=== PATIENT | female | born 1945 | race Two or more races ===

== ENCOUNTER 2018-10-12 02:54 | Emergency (ER) | payer MEDICARE, OTHER ==
[~2018-10-12] VITALS: Ht 149.9 cm; Wt 64.2 kg
--- NOTE | 2018-10-12 03:08 | NUR ---
PT PRESENTED TO THE ER WITH A C/O N/V X 2 HRS [employer]. PT VOMITTED X1 DURING TRIAGE. PT AMBULATED TO ER #7 WITH A STEADY GAIT. PT APPEARED UPSET AND C/O NOT FEELING WELL. PT WAS CONNECTED TO THE MONITOR AND CONTINUOUS PULSE OX. VSS.
--- NOTE | 2018-10-12 03:08 | NUR ---
IV STARTED IN LAC. BLOOD WAS DRAWN AND SENT TO LAB.
[2018-10-12] MEDS ORDERED: ONDANSETRON HCL/PF 4 MG/2 ML VIAL ONE ×2 (03:11→06:52)
[2018-10-12 03:26] LABS: BASOPHILS # (AUTO) 0.1 /CMM (0.0-0.2); BASOPHILS % (AUTO) 0.5 % (0.0-2.0); EOSINOPHILS % (AUTO) 0.3 % (0.0-6.0); HEMATOCRIT 36 % (33-45); HEMOGLOBIN 12.3 g/dL (11.5-14.8); LYMPHOCYTES # (AUTO) 1.7 /CMM (0.8-4.8); LYMPHOCYTES % (AUTO) 8.5 % (20.0-44.0); MEAN CORPUSCULAR HGB CONC 34 g/dl (31.0-36.0); MEAN CORPUSCULAR VOLUME 86 fL (82-100); MONOCYTES % (AUTO) 4.9 % (2.0-12.0); NEUTROPHILS # (AUTO) 16.8 /CMM (1.8-8.9); NEUTROPHILS % (AUTO) 85.8 % (43.0-81.0); PLATELET COUNT (AUTO) 500 /CMM (150-450); RED BLOOD CELL COUNT(AUTO) 4.19 MIL/uL (4.0-5.2); WHITE BLOOD COUNT (AUTO) 19.6 K/uL (4.3-11.0)
[2018-10-12] MEDS ORDERED: ONDANSETRON HCL/PF 4 MG/2 ML VIAL IVP ONE (03:30)
[2018-10-12] MEDS ORDERED: IV NS 0.9% 1,000 ML BAG IV ONE (03:30)
[2018-10-12 03:39] LABS: CALCIUM, SERUM 9.7 mg/dL (8.5-10.1); CARBON DIOXIDE 24 mmol/L (21-32); CHLORIDE 100 mmol/L (98-107); CREATININE 0.9 mg/dL (0.6-1.3); GLUCOSE 190 mg/dL (74-106); POTASSIUM 4.1 mmol/L (3.5-5.1); SODIUM SERUM 137 mmol/L (136-145); UREA NITROGEN, BLOOD 24 mg/dL (7-18)
[2018-10-12 03:43] LABS: ALANINE AMINOTRANSFERASE 28 U/L (12-78); ALBUMIN 4.3 g/dL (3.4-5.0); ALKALINE PHOSPHATASE 93 U/L (46-116); ASPARTATE AMINOTRANSFERASE 29 U/L (15-37); BILIRUBIN,DIRECT 0.1 mg/dL (0.0-0.2); BILIRUBIN,TOTAL 0.4 mg/dL (0.2-1.0); LIPASE 565 U/L (73-393)
--- NOTE | 2018-10-12 03:54 | NUR ---
PT FELT COLD AND REC'D ANOTHER WARM BLANKET.
[2018-10-12] MEDS ORDERED: MAG HYDROX/AL HYDROX/SIMETH 30 ML UDC ONE (04:54)
[2018-10-12] MEDS ORDERED: FAMOTIDINE/PF INJ 20 MG/2 ML VIAL IV ONE (04:56)
[2018-10-12] MEDS: FAMOTIDINE/PF INJ 20 MG/2 ML VIAL IV ONE ×2 (04:56→05:22)
[2018-10-12] MEDS ORDERED: MAG HYDROX/AL HYDROX/SIMETH 30 ML UDC PO ONE (05:00)
--- NOTE | 2018-10-12 06:53 | NUR ---
VERBAL ORDER FROM DR. NICHOLSON FOR ZOFRAN 4MG IVP.
--- NOTE | 2018-10-12 06:53 | NUR ---
PT CALLED AND C/O FEELING NAUSEATED. PT REC'D AN EMESIS BAG AND BEGAN TO VOMIT. NOTIFIED.
[2018-10-12] MEDS ORDERED: ONDANSETRON HCL/PF - ER 4 MG/2 ML VIAL IV ONE (07:00)
--- NOTE | 2018-10-12 07:09 | NUR ---
WAITING TO HEAR BACK FROM [facility] RE: PT TRANSFER INFORMATION.
--- NOTE | 2018-10-12 07:10 | NUR ---
PT'S O2 SAT WAS 91% ON RA. PT WAS SLEEPING. PT WAS PLACED ON 2L O2 VIA NC. PT IS NOW SATURATING AT 96%.
--- NOTE | 2018-10-12 07:21 | NUR ---
REPORT GIVEN TO [facility] BRE[facility].
--- NOTE | 2018-10-12 07:34 | NUR ---
RECEIVED REPORT FROM [facility] LEMA [facility]. PT IS AAOX4, NOT IN RESPIRATORY DISTRESS, V/S STABLE, KEPT RESTED AND COMFORTABLE, AWAITING INFO FROM [facility].
--- NOTE | 2018-10-12 08:41 | NUR ---
RECEIVED A CALL FROM KARINA RADFORDSEAM CHECKER, [facility], PT WILL GO TO [facility] ER AND CALL FOR REPORT AT [phone].
--- NOTE | 2018-10-12 08:45 | NUR ---
REPORT GIVEN TO ABE OLIVA OF [facility]. AWAITING AMBULANCE ETA.
--- NOTE | 2018-10-12 08:47 | NUR ---
ETA OF 0945 PER JEANNIE [id number]
[2018-10-12 09:48] VITALS: BP 131/71
--- NOTE | 2018-10-12 10:15 | NUR ---
REPORT GIVEN TO EMT FOR TRANSFER TO [facility].
== END 2018-10-12 10:19 | disposition short-term general hospital (02) ==
LOC: ER 02:56
DX: K85.90 Acute pancreatitis without necrosis or infection, unspecified (principal); D72.829 Elevated white blood cell count, unspecified; I10 Essential (primary) hypertension; E78.5 Hyperlipidemia, unspecified; F41.9 Anxiety disorder, unspecified; R11.2 Nausea with vomiting, unspecified
CPT/HCPCS: 36415; 76705-TC; 80048-TC; 80076-TC; 83605-TC; 83690-TC; 84484-TC; 85025-TC; J2405; J3490; J7030